=== PATIENT | female | born 1985 | race Caucasian/White ===

== ENCOUNTER 2016-10-01 13:45 | Emergency (ER) | payer OTHER ==
[2016-10-01 14:20] VITALS: BP 134/77; PULSE 71; RESP 16; TEMP 98.1; O2SAT 97
[2016-10-01] MEDS ORDERED: IBUPROFEN 600 MG TAB PO ONE (14:53)
--- NOTE | 2016-10-01 15:08 | EDPHY ---
H & P Stated Complaint: R shoulder injury-teaching skiing. 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 She complains of moderate pain along the anterior aspect of her shoulder and AC joint. Patient denies any additional injury in her neck , elbow or wrist. She denies associated numbness or weakness. She denies additional complaints. REVIEW OF SYSTEMS: A comprehensive 10 point review of systems is otherwise negative aside from elements mentioned in the history of present illness. Source: Patient Exam Limitations: No limitations - Personal History LMP (Females 10-55): 15-21 Days Ago Current Tetanus/Diphtheria Vaccine: Unsure Current Tetanus Diphtheria and Acellular Pertussis (TDAP): Unsure - Medical/Surgical History Hx Asthma: Yes Hx Chronic Respiratory Disease: No Hx Diabetes: No Hx Cardiac Disease: No Hx Renal Disease: No Hx Cirrhosis: No Hx Alcoholism: No Hx HIV/AIDS: No Hx Splenectomy or Spleen Trauma: No Other PMH: Appy, seasonal athma - Social History Smoking Status: Light smoker - Physical Exam Exam: General Appearance: Alert, no distress Head: Atraumatic Neck: Nontender, trachea midline Respiratory: No chest wall tender, subcutaneous air, lungs clear bilaterally Cardiovascular: Regular rate and rhythm Abdomen: Abdomen is soft and nontender, pelvis stable Skin: No lacerations, No abrasion Back: No midline T/L/S pain Extremities: Tenderness to palpation right AC joint Neurological: A&Ox3, normal motor function, normal sensory exam Constitutional: Initial Vital Signs Temperature (C) 36.7 C 10/01/16 14:15 Heart Rate 71 10/01/16 14:15 Respiratory Rate 16 10/01/16 14:15 Blood Pressure 134/77 H 10/01/16 14:15 O2 Sat (%) 97 10/01/16 14:15 O2 Delivery Mode Room Air Allergies/Adverse Reactions: cefaclor [From Ceclor] Allergy (Intermediate, Verified 10/01/16 14:21) Unknown lobster Allergy (Severe, Uncoded 10/01/16 14:21) Rash Home Medications: Medication Instructions Recorded NK [No Known Home Meds] 10/01/16 Medical Decision Making - Diagnostics Imaging: Right shoulder x-ray: Grade 2 AC separation. Images reviewed by myself. ED Course/Re-evaluation: The patient presents to the ED with a grade 2 AC separation. She is noted to be neurologically intact without additional injury. The patient will be placed in a sling immobilizer. She is advised to ice the area and take NSAIDs. The patient will be referred to our on-call orthopedic surgeon, Dr. Al Srivastava for any pain or swelling which persists past 7-10 days as this may be the sign of an injury not noted on the x-ray today. Differential Diagnosis: Differential diagnosis considered includes fracture, sprain, dislocation Departure - Departure Disposition: Home, Routine, Self-Care Clinical Impression: AC separation, type 2 Qualifiers: Encounter type: initial encounter Laterality: right Qualified Code(s): S43.101A - Unspecified dislocation of right acromioclavicular joint, initial encounter Condition: Good Instructions: Acromioclavicular Separation (ED) Additional Instructions: 1. Take Ibuprofen or Motrin 600 mg by mouth three times a day. 2. Sling for comfort 3. Please follow up with the orthopedic surgeon you have been referred to for any pain or decreased range of motion that persists past 7-10 days as this may be the sign of an injury not seen on the x-ray today. 4. Okay to return to work on Monday of next week if having normal range of motion and not having pain. 5. You have been given the contact number of our on-call orthopedic surgeon, Dr. Al Srivastava, should you need additional follow-up. Referrals: Al Srivastava MD [Medical Doctor] - As per Instructions
== END 2016-10-01 15:31 | disposition home or self-care (01) ==
DX: S43.101A Unspecified dislocation of right acromioclavicular joint, initial encounter (principal); J45.909 Unspecified asthma, uncomplicated; F17.200 Nicotine dependence, unspecified, uncomplicated; V00.328A Other snow-ski accident, initial encounter; Y99.8 Other external cause status; Y93.23 Activity, snow (alpine) (downhill) skiing, snowboarding, sledding, tobogganing and snow tubing
CPT/HCPCS: A4565; G0397